=== PATIENT | male | born 1985 | race Caucasian/White ===

== ENCOUNTER 2020-08-29 14:09 | Emergency (ER) | payer OTHER, MEDICAID, SELFPAY ==
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
[2020-08-29 14:22] VITALS: BP 127/80; BP 133/82; PULSE 72; PULSE 80; RESP 14; TEMP 37.1; O2SAT 100; O2SAT 98; BMI 22.8
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
--- NOTE | 2020-08-29 16:42 | PC.NURSE ---
call placed to ct dept to request results
--- NOTE | 2020-08-29 16:47 | PC.NURSE ---
ct dept states approx. 10 minutes longer for results
[2020-08-29 16:59] VITALS: BP 119/70; PULSE 62; RESP 16; TEMP 36.6; O2SAT 100
[2020-08-29] MEDS: Ibuprofen 600 MG TABLET PO (17:08)
[2020-08-29] MEDS: Acetaminophen 325 MG TABLET 975 MG PO (17:09)
== END 2020-08-29 17:17 | disposition home or self-care (01) ==
PROVIDERS: Emergency Provider Emergency Medicine Emergency Medical Services
DX: S19.9XXA Unspecified injury of neck, initial encounter (principal); M54.2 Cervicalgia; V43.52XA Car driver injured in collision with other type car in traffic accident, initial encounter; Y93.9 Activity, unspecified; Y92.410 Unspecified street and highway as the place of occurrence of the external cause; Y99.9 Unspecified external cause status
CPT/HCPCS: 72125; 99284

== ENCOUNTER 2021-06-28 09:24 | Outpatient (REF) | payer MEDICAID, SELFPAY ==
--- NOTE | 2021-06-28 09:29 | EMG_ITS ---
Left median and ulnar motor and sensory studies were performed. Left radial sensory study was performed and paraspinal muscles were tested with a needle. IMPRESSION: Moderate to severe chronic ulnar neuropathy with axonal loss. MD ANABELLE Dukes/PAPITO / [id number]
== END 2021-06-28 09:25 | disposition home or self-care (01) ==
LOC: HO.NEURO 09:24
PROVIDERS: Visit Provider Internal Medicine
DX: G56.22 Lesion of ulnar nerve, left upper limb (principal)
CPT/HCPCS: 95886; 95909

== ENCOUNTER 2024-10-11 10:43 | Outpatient (REF) | payer MEDICAID, SELFPAY ==
[2024-10-11 11:47] LABS: MANUAL DIFF FLAG NO
[2024-10-11 11:58] LABS: Basophils Percent Auto 0.2 % (0-2); Eosinophils Absolute Auto 0.1 X10*3/uL (0.0-0.4); Eosinophils Percent Auto 0.9 % (0-4); Hematocrit 40.1 % (42.0-52.0); Hemoglobin 13.5 g/dl (14.0-18.0); Imm Gran Abs Auto 0.02 X10*3/uL (0.00-0.03); Imm Gran Pct Auto 0.2 % (0.0-0.4); Lymphocytes Absolute Auto 3.5 X10*3/uL (1.2-4.9); Lymphocytes Percent Auto 40.6 % (20-40); Mean Corpuscular HGB Conc 33.7 g/dl (31.0-36.0); Mean Corpuscular Hemoglobin 29.7 pg (27.0-33.0); Mean Corpuscular Volume 88.3 fL (80.0-98.0); Mean Platelet Volume 10.3 fL (9.4-12.4); Monocytes Absolute Auto 0.6 X10*3/uL (0.1-1.2); Monocytes Percent Auto 6.9 % (2-11); Neutrophils Absolute Auto 4.3 x10*3/uL (2.0-8.3); Neutrophils Percent Auto 51.2 % (45-73); Platelet Count 254 X10*3/uL (160-400); Red Blood Count 4.54 X10*6/uL (4.60-5.80); Red Cell Distribution Width 12.4 % (11.0-16.0); White Blood Count 8.5 X10*3/uL (4.8-10.8)
[2024-10-11 12:11] LABS: Estimated Average Glucose 111 mg/dL; Hemoglobin A1C 128.6381 umol/L; Hemoglobin A1c % 5.5 % (<6.0)
[2024-10-11 12:33] LABS: Alanine Aminotransferase 28 U/L (0-40); Albumin Level 4.2 g/dL (3.5-5.0); Alkaline Phosphatase 102 U/L (39-117); Anion Gap 9 (12-20); Aspartate Amino Transferase 19 U/L (5-37); Bilirubin Total 0.4 mg/dL (0.0-1.0); Blood Urea Nitrogen 8 mg/dL (9-16); Calcium 8.9 mg/dL (8.4-10.2); Carbon Dioxide 26 mmol/L (22-29); Chloride 109 mmol/L (96-108); Cholesterol 133 mg/dL (<200); Estimated Glomerular Filt Rate > 60; Glucose Random 93 mg/dL (60-115); HDL Cholesterol 44 mg/dL (>40); LDL Cholesterol Calculated 67 mg/dL (<100); Potassium 4.2 mmol/L (3.3-5.1); Sodium 140 mmol/L (135-145); TSH reflex Free T4 1.85 uIU/mL (0.32-4.0); Total Protein 7.1 g/dL (6.5-8.0); Triglycerides 110 mg/dL (<150); Vitamin D 25-OH Total 17.1 ng/mL (>30)
[2024-10-11 12:37] LABS: HIV AB/AG Nonreactive (Nonreactive); HIV Num 1 0.07 S/CO (0.00-0.99); ~Hepatitis C Antibody Nonreactive (Nonreactive)
[2024-10-15 14:27] LABS: Testosterone, Total 146 ng/dL (250-1100)
== END 2024-10-11 10:44 | disposition home or self-care (01) ==
LOC: HO.HHCL 10:43
PROVIDERS: Visit Provider Internal Medicine
DX: Z00.00 Encounter for general adult medical examination without abnormal findings (principal); R37 Sexual dysfunction, unspecified
CPT/HCPCS: 36415; 80053; 80061; 82306; 83036; 84403; 84443; 85025; 86803; 87389

== ENCOUNTER 2024-12-28 15:27 | Outpatient (AMB) | payer MEDICAID, SELFPAY ==
--- NOTE | 2024-12-28 15:40 | A.OFFVIS_ITS ---
Intake Visit Reasons: low testosterone Intake Note: Patient is present for LOW TESTOSTERONE Urology Medication:NONE Antibiotic Allergy:NONE Blood Thinner:NONE Passenger Car Inspector Required: No Allergies No Known Allergies Allergy (Verified 12/28/24 15:40) HPI Comments Details: Damaso is a pleasant male. He is a patient of Dr. Denton. He is seen for the following urologic conditions - hypogonadism - delayed ejaculation Long-term Suboxone Had trialed tadalafil with minimal success Testosterone - 10/12 146 Plan repeat testosterone labs Start testosterone transdermal Three-month follow-up lab work [facility] Surgical History (Updated 08/29/20 @ 14:26 by Rakel Barbour) History of surgery on arm Social History Substance Use Type: Marijuana Review of Systems Const Denies chills and Denies fever(s) Card Reports no additional complaints and Denies syncope Resp Denies cough GI Denies abdominal pain and Denies heartburn Reports as per HPI and Denies change in libido Neuro Denies syncope Psych Denies change in libido Endo Denies change in libido Physical Exam Const General: cooperative, healthy appearing, comfortable and no acute distress Orientation/consciousness: patient oriented x3 HEENT Face and sinus: Yes normal facial exam Mouth: moist mucous membranes Neck Neck: Yes normal visual inspection, Yes full ROM and Yes trachea midline Chest Chest palpation & inspection: normal inspection of the chest Resp Effort & Inspection: normal respiratory effort, able to speak in complete sente nces and no respiratory distress GI Inspection: Yes normal to inspection Back/Spine/Pelvis Cervical Spine: normal cervical lordosis Thoracic/Lumbar Spine: thoracic and lumbar spine normal to inspection Skin General skin exam: no rashes or lesions noted Neuro General: patient oriented x3, gait normal, tone normal and moves all extremities Extrem General: Yes normal to inspection and Yes capillary refill normal Results AMB Urinalysis, Automated UA Leukoctes 0 Tom/uL Last Edit by KEANU Talbot on 12/28/24 15:57 UA Nitrite Negative Last Edit by KEANU Talbot on 12/28/24 15:57 UA Urobilinogen 0.2 mg/dL Last Edit by KEANU Talbot on 12/28/24 15:5 7 UA Protein 15 mg/dL Last Edit by KEANU Talbot on 12/28/24 15:57 UA pH 6.5 Last Edit by KEANU Talbot on 12/28/24 15:57 UA Blood 0 Gary/uL Last Edit by KEANU Talbot on 12/28/24 15:57 UA Specific [place] 1.015 Last Edit by KEANU Talbot on 12/28/24 15: 57 UA Ketone Negative Last Edit by KEANU Talbot on 12/28/24 15:57 UA Bilirubin 0 mg/dL Last Edit by KEANU Talbot on 12/28/24 15:57 UA Glucose 0 mg/dL Last Edit by KEANU Talbot on 12/28/24 15:57 Results Reviewed Results Reviewed: Laboratory Last Values Urine pH (Auto) 6.5 12/28/24 15:56 Specific [place] (Auto) 1.015 12/28/24 15:56 Urine Protein (Auto) 15 mg/dL 12/28/24 15:56 Glucose (UA)(Auto) 0 mg/dL 12/28/24 15:56 Urine Ketones (Auto) Negative 12/28/24 15:56 Urine Blood (Auto) 0 Gary/uL 12/28/24 15:56 Urine Nitrite (Auto) Negative 12/28/24 15:56 Urine Bilirubin (Auto) 0 mg/dL 12/28/24 15:56 Urine Urobilinogen (Auto) 0.2 mg/dL 12/28/24 15:56 Leukocyte Esterase (Auto) 0 Tom/uL 12/28/24 15:56 Assessment & Plan Assessment & Plan (1) Hypogonadism in male: Code(s): E29.1 - Testicular hypofunction Category: Medical Plan Start testosterone Three-month follow-up Orders: Orders AMB Urinalysis Automated Today Z13.9 - Encounter for screening, unspecified Lutenizing Hormone Today E29.1 - Testicular hypofunction Prolactin Today E29.1 - Testicular hypofunction Follicle Stimulating Hormone Today E29.1 - Testicular hypofunction Testosterone, Total 3 Months E29.1 - Testicular hypofunction Testosterone, Free/Total Today E29.1 - Testicular hypofunction Medications: New testosterone Apply to shoulder and rub in until dry 1 packet transdermal DAILY 30 days 150 grams 2RF E29.1 - Testicular hypofunction Patient Instructions: This note is constructed using voice recognition software. 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 Imaging studies, laboratory and physical exam results were discussed and reviewed in detail. No major barriers to patient understanding were identified. An opportunity to ask questions regarding the treatment plan was provided. All questions were answered. The patient expressed understanding and agreement with the above treatment plan. The patient is aware they should contact our office by phone for worsening of their current condition or the appearance of new urologic symptoms. Compliance is encouraged with any medications and followup testing that is ordered. It is a privilege to participate in the urologic care of your patient. If you have any questions or concerns regarding treatment for the above conditions, or other urologic issues, please do not hesitate to contact me. The office telephone contact is [phone]. Sincerely, Dr Reji Salgado MD, [facility] - Urology Compassionate Specialist Care for the Genitourinary System Coding Level of Care Code New Pt Level 4 (06296) Diagnoses Hypogonadism in male E29.1
--- OUTSIDE RECORDS SUMMARY | 2024-12-28 18:35 | XMS_ITS | Encounter Summary ---
Author Organization [employer] Address [address] [place] [address] Care Team Providers Care Bilingual Office Assistant Name Role Phone Alicia Love MD Primary Care Provide r Reason for Visit * Reason Onset Date Comments Nurse Triage 03/11/2023 Encounter Details Date Type Department Care Team ([facility] st Contact Info) Description 03/11/2023 Telephone [facility] MED[facility] [address] [place], [place] [phone] Alicia Love MD [address] [place] [address] Nurse Triage Social History Tobacco Use Types Packs/Day Years Used Date Smoking Tobacco: Never Assessed Sex and Gender Information Value Date Recorded Sex Assigned at Male 05/20/2022 10:21 AM EDT Legal Sex Male 10:21 AM EDT Gender Identity Male 05/20/2022 10:21 AM EDT Sexual Orientation Choose not to disclose 2021 10:21 AM EDT documented as of this encounter Miscellaneous Notes * Telephone Encounter - Lisa Schofield RN - 03/11/2023 3:06 PM EDT Triage call Pt reports concern about constipation and requests to speak to PCP concerning something personal . Pt reports constipation started again, Pt switched to high fiber diet, eating oatmeal, increased liquids to 8 glasses/day and is taking some gummies with dulcolax in them. Pt reports normal stool this morning. Pt reports no abdominal pain at time of call and last rectal bleeding on toilet paper was last month. Pt reports abdominal pain comes with a lot of gas and passes with stool. Pt agrees to see another provider on red team no available apts with PCP. Apt with Dr. Haynes 03/28/23 @ 1115am. Advised Pt to call in the beginning of next to see if any openings with PCP and Pt agreed. Insurance is verified as active prior to booking. Protocol Used: Constipation (Adult) Protocol-Based Disposition: See in Office or Video Visit within 2 Weeks Video visit not offered Positive Triage Questions: * Constipation is a recurrent ongoing problem (i.e., < 3 BMs / week or straining > 25% of thetime) * Minor bleeding from rectum (e.g., blood just on toilet paper, few drops, streaks on surface of normal formed BM) occurs more than twice * All higher-acuity triage questions were negative Care Advice Discussed: * Reassurance and Education - Constipation * General Constipation Instructions * High Fiber Diet * Drink Adequate Liquids * Get Into a Rhythm * Enemas * Narcotic Pain Medicine * Reasons To Call Back - Constipation lasts more than 1 week after using Care Advice - Abdomen swelling, vomiting or fever occur - Constant or increasing abdomen pain - You think you need to be seen - You become worse * Telephone Encounter - Danielle Bateman - 03/11/2023 2:39 PM EDT Symptoms: Rectal Bleeding, Constipation Outcome: Schedule an urgent appointment (within 1 hour) or talk to a nurse or provider soon Reason: Constant stomach pain The caller accepted this outcome documented in this encounter Plan of Treatment Upcoming Encounters Date Type Department Care Team (Late st Contact Info) Description 01/25/2025 1:45 PM EDT Office Visit [facility] [address] [place], [place] [phone] Cynthia Andino, MAYNOR [address] [place] [address] documented as of this encounter Visit Diagnoses Not on filedocumented in this encounter Care Teams Bilingual Office Assistant Relationship Specialty Start Date End Date Alicia Love MD [address] [place] [address] PCP - General Family Medicine 04/01/18 documented as of this encounter
== END 2024-12-28 16:21 | disposition home or self-care (01) ==
LOC: HO.HUSH 15:27
PROVIDERS: PCP Internal Medicine; Visit Provider Urology
DX: Z13.9 Encounter for screening, unspecified (principal); E29.1 Testicular hypofunction
CPT/HCPCS: 99204

== ENCOUNTER → 2024-12-28 15:27 | Outpatient (BNVA) | payer MEDICAID, SELFPAY | PROVIDERS: PCP Internal Medicine; Visit Provider Urology | DX: E29.1 Testicular hypofunction (principal) | CPT/HCPCS: 81003; 99202 ==